=== PATIENT | male | born 1975 | race African-American/Black ===

== ENCOUNTER 2019-03-04 08:53 | Emergency (ER) | payer OTHER ==
[~2019-03-04] VITALS: Ht 177.8 cm; Wt 85.0 kg
[2019-03-04] MEDS ORDERED: IBUPROFEN 600MG TABLET PO ONE (09:30)
[2019-03-04 11:19] VITALS: BP 128/78
== END 2019-03-04 11:21 | disposition home or self-care (01) ==
LOC: ER 08:53
DX: M79.644 Pain in right finger(s) (principal); W18.39XA Other fall on same level, initial encounter; Y93.89 Activity, other specified; Y92.89 Other specified places as the place of occurrence of the external cause; Y99.8 Other external cause status
CPT/HCPCS: 73130; 73562; 99283

== ENCOUNTER 2022-08-15 22:21 | Emergency (ER) | payer MEDICAID, OTHER ==
[~2022-08-15] VITALS: Ht 188 cm; Wt 95.0 kg
[2022-08-15] MEDS ORDERED: ONDANSETRON HCL 4MG/2ML INJ IV STA (23:48)
[2022-08-16] MEDS ORDERED: SODIUM CHLORIDE 0.9% 1,000 ML IV ONE
[2022-08-16] MEDS ORDERED: NALOXONE HCL 0.4 MG/ML 1ML VIAL IV ONE
[2022-08-16 00:54] LABS: BASOPHILS % 0.4 % (0.0-2.0); EOSINOPHILS % 0.2 % (0.0-5.0); HEMATOCRIT. 47.9 % (42.0-52.0); HEMOGLOBIN. 15.3 g/dL (14.0-18.0); LYMPHOCYTES % 23.3 % (20.0-50.0); MEAN PLATELET VOLUME 10.9 fl (7.4-10.4); MONOCYTES % 5.2 % (2.0-8.0); NEUTROPHILS % 70.9 % (40.0-76.0); PLATELET 174 x1000/uL (130-400); RED BLOOD CELL COUNT 5.09 mill/uL (4.7-6.1); RED CELL DISTRIBUTION WIDTH 15.2 % (11.6-14.6)
[2022-08-16 01:21] LABS: CHLORIDE 107 mEq/L (98-107)
[2022-08-16 01:30] LABS: ETHANOL BLOOD 134 mg/dL
[2022-08-16 03:00] VITALS: BP 116/70
[2022-08-16] MEDS ORDERED: NALO4SPR BOTHNSTRLS (03:09)
== END 2022-08-16 05:09 | disposition home or self-care (01) ==
LOC: ER 22:21
DX: R41.82 Altered mental status, unspecified (principal); T50.901A Poisoning by unspecified drugs, medicaments and biological substances, accidental (unintentional), initial encounter; Y92.9 Unspecified place or not applicable
CPT/HCPCS: 36415; 70450; 71045; 80053; 80320; 85025; 96374; 96375; 99285; J2310; J2405; Z7610; G0480